=== PATIENT | male | born 1990 | race African-American/Black ===

== ENCOUNTER 2017-11-22 11:39 | Emergency (ER) | payer OTHER ==
[~2017-11-22] VITALS: Ht 185.4 cm; Wt 104.2 kg
[~2017-11-22 11:39] MED LIST: FLONASE16 G1 BOTH NARES; NAPROSYN500 MG PO
[2017-11-22] MEDS ORDERED: NAPROXEN500 MG PO (17:13)
[2017-11-22] MEDS ORDERED: FLEXERIL10 MG PO (17:13)
[2017-11-22 17:37] VITALS: BP 135/82
== END 2017-11-22 17:38 | disposition home or self-care (01) ==
LOC: EME 11:39
DX: R51 Headache (principal); M25.562 Pain in left knee; M54.9 Dorsalgia, unspecified; M54.2 Cervicalgia; M25.511 Pain in right shoulder; M43.6 Torticollis; V43.52XA Car driver injured in collision with other type car in traffic accident, initial encounter; F17.200 Nicotine dependence, unspecified, uncomplicated
CPT/HCPCS: 70450; 72125; 73030; 73564; 99281; 99283